=== PATIENT | female | born 1970 | race Native Hawaiian/Other Pacific Islander ===

== ENCOUNTER 2020-11-13 14:14 | Outpatient (CLI) | payer BC | END 2020-11-13 22:58 | disposition home or self-care (01) | LOC: INF 14:14 | PROVIDERS: ATTEND Internal Medicine | DX: Z23 Encounter for immunization (principal) | CPT/HCPCS: 96372 ==

== ENCOUNTER 2020-12-12 11:46 | Outpatient (CLI) | payer BC | END 2020-12-12 20:34 | disposition home or self-care (01) | LOC: INF 11:46 | PROVIDERS: ATTEND Internal Medicine | DX: Z23 Encounter for immunization (principal) ==